=== PATIENT | male | born 1940 | race Caucasian/White ===

== ENCOUNTER → 2017-02-11 | Outpatient (CLI) | payer MEDICARE, OTHER ==
--- NOTE | 2017-02-11 16:51 | PCVCIMAG ---
APPROVED REPORT Study performed: 02/11/2017 13:07:23 EXAM: Comprehensive 2D, Doppler, and color-flow Echocardiogram Patient Location: Echo lab BSA: 2.07 HR: 61 bpmBP: 116/60 mmHg Rhythm: Atrial Fibrillation Other Information Study Quality: Adequate Indications Mitral Valve Disease Atrial Fibrillation Aortic dissection and repair 2D Dimensions LVEF(%): 59.42 (>50%) IVSd: 10.19 (7-11mm)LVOT Diam: 22.04 (18-24mm) LVDd: 63.75 mm PWd: 7.99 (7-11mm) LVDs: 43.18 (25-40mm) Left Atrium: 43.06 (27-40mm) Aortic Root: 28.03 mm LV Single Plane 4CH: 55.24 % LV Single Plane 2CH: 54.61 %Figueroa's LVEF: 54.92 % Biplane EF: 56.8 % Volumes Left Atrial Volume (Systole) Single Plane 4CH: 103.27 mLSingle Plane 2CH: 90.77 mL Biplane LA Volume: 101.00 mLLA ESV Index: 49.00 mL/m2 Aortic Valve AoV Peak Hugo.: 1.88 m/s AO Peak Gr.: 14.12 mmHgLVOT Max P.35 mmHg AO Mean Gr.: 6.53 mmHg AO V2 Mean: 1.21 m/sLVOT Max V: 0.92 m/s AO V2 VTI: 39.26 cm SAURAV Vmax: 1.86 cm2 AI Vmax: 4.20 m/s AI Bland: 2.15 m/s2 AI PHT: 571.12 ms Mitral Valve MV Peak Gr.: 4.94 mmHg MV Mean Gr.: 2.18 mmHgE/A Ratio: 0.8 MV Decel. Time: 368.72 ms MV E Max Hugo.: 0.93 m/s MV A Hugo.: 1.14 m/s MV Max Hugo.: 1.11 m/s MV Mean Hugo.: 0.70 m/s MV VTI: 444.94 mm MV PHT: 144.60 ms MVA (PHT): 1.52 cm2 IVRT: 79.58 ms TDI E/Lateral E': 18.60E/Medial E': 18.60 Medial E' Hugo.: 0.05 m/s Lateral E' Hugo.: 0.05 m/s Pulmonary Valve PV Peak Hugo.: 0.97 m/sPV Peak Gr.: 3.78 mmHg Pulmonary Vein P Vein S: 0.55 m/sP Vein A: 0.26 m/s P Vein D: 0.40 m/sP Vein A Dur.: 90.0 msec P Vein S/D Ratio: 1.38 Tricuspid Valve TR Peak Hugo.: 2.48 m/s TR Peak Gr.: 24.63 mmHg TV Vmax: 0.63 m/sPA Pressure: 32.00 mmHg Left Ventricle Left ventricle is moderately dilated. There is normal LV segmental wall motion. There is normal left ventricular wall thickness. The left ventricular systolic function is normal. The left ventricular ejection fraction is within the normal range. LVEF is 55-60%. Grade I diastolic dysfunction Right Ventricle The right ventricle is normal size. The right ventricular systolic function is normal. Atria Left atrium is severely dilated. Right atrium is severely dilated. Aortic Valve Aortic valve is trileaflet. Mild aortic valve sclerosis. Mild to moderate aortic regurgitation. There is no aortic valvular stenosis. Mitral Valve Changes consistent with posterior mitral leaflet repair Trace to mild mitral regurgitation. No mitral stenosis Tricuspid Valve Trace to mild tricuspid regurgitation with a PA pressure of 30mmHg Pulmonic Valve Trace pulmonic regurgitation. Pericardium There is no pericardial effusion. There is no pleural effusion. <Conclusion> The left ventricular systolic function is normal. There is normal LV segmental wall motion. LVEF is 55-60%. Grade I diastolic dysfunction Both atria are severely dilated. Aortic valve is trileaflet, mild sclerosis. Mild to moderate aortic regurgitation. Changes consistent with posterior mitral leaflet repair. Trace to mild mitral regurgitation. Pulmonary artery pressure of 30mmHg No pericardial effusion
== END | disposition home or self-care (01) ==
LOC: PCVCIMAG 12:44
PROVIDERS: ATTEND Internal Medicine
DX: I08.3 Combined rheumatic disorders of mitral, aortic and tricuspid valves (principal); I71.01 Dissection of thoracic aorta; I10 Essential (primary) hypertension; G47.33 Obstructive sleep apnea (adult) (pediatric); E78.5 Hyperlipidemia, unspecified; Z98.890 Other specified postprocedural states; Z79.82 Long term (current) use of aspirin
CPT/HCPCS: 80061; 93306; G0463

== ENCOUNTER → 2018-11-02 | Outpatient (CLI) | payer MEDICARE, OTHER ==
--- NOTE | 2018-11-02 17:07 | PCVCIMAG ---
APPROVED REPORT Study performed: 11/02/2018 16:03:17 EXAM: Comprehensive 2D, Doppler, and color-flow Echocardiogram Patient Location: Echo lab Status: routine BSA: 2.07 HR: 62 bpmBP: 138/62 mmHg Rhythm: NSR W/ PVCs Other Information Study Quality: Adequate Risk Factors: Cardiac Risk Factors: HTN Indications Pre-Op mitral valve repair, aortic dissection repair 2D Dimensions IVSd: 12.15 (7-11mm) LVDd: 55.89 mm PWd: 13.09 (7-11mm)Ascending Ao: 36.48 (22-36mm) LVDs: 43.93 (25-40mm) Left Atrium: 59.77 (27-40mm) Aortic Root: 36.23 mm LV Single Plane 4CH: 59.08 % LV Single Plane 2CH: 56.83 % Biplane EF: 59.9 % Volumes Left Atrial Volume (Systole) Single Plane 4CH: 163.41 mLSingle Plane 2CH: 146.92 mL LA ESV Index: 77.00 mL/m2 Aortic Valve AoV Peak Huog.: 1.50 m/s AO Peak Gr.: 9.04 mmHgLVOT Max P.35 mmHg LVOT Max V: 0.77 m/s AI Vmax: 4.51 m/s AI Norman: 3.20 m/s2 AI PHT: 409.66 ms Mitral Valve MV Peak Gr.: 7.58 mmHg MV Mean Gr.: 2.29 mmHgE/A Ratio: 1.6 MV Decel. Time: 278.30 ms MV E Max Hugo.: 1.49 m/s MV A Hugo.: 0.93 m/s MV Max Hugo.: 1.38 m/s MV Mean Hugo.: 0.70 m/s MV VTI: 452.91 mm MV PHT: 107.48 ms MVA (PHT): 2.05 cm2 IVRT: 148.79 ms Pulmonary Valve PV Peak Hugo.: 0.82 m/sPV Peak Gr.: 2.70 mmHg Pulmonary Vein P Vein S: 0.64 m/sP Vein A: 0.22 m/s P Vein D: 0.57 m/sP Vein A Dur.: 145.3 msec P Vein S/D Ratio: 1.12 Tricuspid Valve TR Peak Hugo.: 3.25 m/s TR Peak Gr.: 42.34 mmHg Left Ventricle The left ventricle is normal size. There is normal LV segmental wall motion. Mild concentric left ventricular hypertrophy. Left ventricular systolic function is normal. The left ventricular ejection fraction is within the normal range. LVEF is 50-55%. This study is not technically sufficient to allow evaluation of the LV diastolic function. Right Ventricle The right ventricle is normal size. The right ventricular systolic function is normal. Atria Left atrium is severely dilated. Right atrium is moderately dilated. Aortic Valve The aortic valve is trileaflet, mild sclerosis Moderate aortic regurgitation. There is no aortic valvular stenosis. Mitral Valve Changes consistent with posterior mitral leaflet repair Mild to moderate mitral regurgitation. No evidence of mitral valve stenosis. Calculated mitral valve area is 2.0 cm2 with maximum pressure gradient of 7.6 mmHg and mean pressure gradient of 2.3 mmHg. Tricuspid Valve The tricuspid valve is normal in structure. Moderate tricuspid regurgitation with PAP of 40-45 mmHg. Pulmonic Valve The pulmonary valve is normal in structure. Mild to moderate pulmonic regurgitation. Great Vessels The aortic root is normal in size. IVC is normal in size and collapses >50% with inspiration. Pericardium There is no pericardial effusion. There is no pleural effusion. <Conclusion> Left ventricular systolic function is normal. There is normal LV segmental wall motion. LVEF 50-55%. Left atrium is severely dilated. The aortic valve is trileaflet, mild sclerosis. Moderate aortic regurgitation, no stenosis. Changes consistent with posterior mitral leaflet repair. Mild to moderate mitral regurgitation. Moderate tricuspid regurgitation with PAP of 40-45 mmHg. There is no pericardial effusion.
== END | disposition home or self-care (01) ==
LOC: PCVCCLINIC 15:00
PROVIDERS: ATTEND Internal Medicine
DX: Z01.818 Encounter for other preprocedural examination (principal); I08.1 Rheumatic disorders of both mitral and tricuspid valves; I71.01 Dissection of thoracic aorta; E78.5 Hyperlipidemia, unspecified; I10 Essential (primary) hypertension; G47.33 Obstructive sleep apnea (adult) (pediatric); I48.91 Unspecified atrial fibrillation; Z79.82 Long term (current) use of aspirin
CPT/HCPCS: 36415; 80061; 93005; 93306; G0463